=== PATIENT | male | born 1955 | race Hispanic/Latino ===

== ENCOUNTER 2020-05-09 08:49 | Outpatient (CLI) | payer BC, OTHER ==
[2020-05-10 11:56] LABS: SARS-CoV-2 MS2 Positive; SARS-CoV-2 N Gene Negative; SARS-CoV-2 S Gene Negative; SARS-CoV-2 orf1ab Negative
== END 2020-05-09 08:50 | disposition home or self-care (01) ==
LOC: SCSLAB 08:49
PROVIDERS: ATTEND Internal Medicine Critical Care Medicine
DX: Z01.812 Encounter for preprocedural laboratory examination (principal); Z11.59 Encounter for screening for other viral diseases; G47.33 Obstructive sleep apnea (adult) (pediatric)
CPT/HCPCS: 87635; U0003

== ENCOUNTER 2020-05-15 19:30 | Outpatient (CLI) | payer BC | END 2020-05-15 19:31 | disposition home or self-care (01) | LOC: SLEEPLAB 19:30 | PROVIDERS: ATTEND Internal Medicine Critical Care Medicine | DX: G47.33 Obstructive sleep apnea (adult) (pediatric) (principal); R06.83 Snoring; R53.83 Other fatigue; R40.0 Somnolence | CPT/HCPCS: 95811 ==

== ENCOUNTER 2024-08-31 12:35 | Outpatient (CLI) | payer MEDICARE ==
[~2024-08-31 12:35] MED LIST: Magnevist 469MG/ML 20 ML VIAL ONE
== END 2024-08-31 12:36 | disposition home or self-care (01) ==
LOC: MRI 12:35
DX: M48.062 Spinal stenosis, lumbar region with neurogenic claudication (principal); M48.07 Spinal stenosis, lumbosacral region; M53.83 Other specified dorsopathies, cervicothoracic region; Z98.890 Other specified postprocedural states
CPT/HCPCS: 72158